=== PATIENT | female | born 1955 | race Caucasian/White ===

== ENCOUNTER → 2017-05-01 10:08 | Outpatient (CLI) | payer OTHER ==
[2015-10-08 11:32] VITALS: BMI 32.7
[~2017-05-01 10:08] MED LIST: ELAVIL75 MG PO; KLONOPIN1 MG PO; PRINIVIL20 MG PO; PROZAC20 MG PO; SYNTHROID100 MCG PO; ZOMIG5 MG PO
[2017-05-01 11:22] LABS: T4 THYROXIN - FREE 1.35 ng/dL (0.76-1.46); THYROID STIMULATING HORMONE 2.03 uIU/mL (0.36-3.74)
== END | disposition home or self-care (01) ==
LOC: D.RAD 10:08
PROVIDERS: Internal Medicine Gastroenterology
DX: K59.00 Constipation, unspecified (principal); R10.9 Unspecified abdominal pain

== ENCOUNTER 2019-07-19 12:51 | Day surgery (SDC) | payer MEDICAID ==
[~2019-07-19] VITALS: Ht 182.9 cm; Wt 99.8 kg
[~2019-07-19 12:51] MED LIST changes: +ALLOPURINOL TAB 300 PO; +BACLOFEN10 MG PO; +LIPITOR20 MG PO; +PROTONIX40 MG PO; +TOPROL XL50 MG PO
[2019-07-19 13:27] LABS: HEMATOCRIT 39.6 % (36.0-48.0); HEMOGLOBIN 13.2 g/dL (12-16); MCH 29.4 pg (26.0-34.0); MCHC 33.3 g/dL (31.0-37.0); MCV 88.2 fL (80.0-100.0); MEAN PLATELET VOLUME 9.6 fL (7.4-10.4); RBC 4.49 10x6/uL (4.00-5.40); RDW 13.6 % (11.5-14.5); WBC 5.9 10x3/uL (4.8-10.8)
[2019-07-19 14:37] VITALS: BP 137/59; Ht 182.9 cm; Wt 99.8 kg
[2019-07-19] MEDS ORDERED: KEFLEX500 MG PO (18:05)
[2019-07-19] MEDS ORDERED: PERCOCET 5-3251 TAB PO (18:05)
--- NOTE | 2019-07-20 08:51 | OP ---
PATIENT NAME: AURY ESTEVES MEDICAL RECORD: [id number] :57 LOCATION:[facility] ADMISSION DATE: SURGEON: LUKE GARZA DO DATE OF OPERATION: 07/19/2019 PROCEDURE PERFORMED: Left elbow olecranon bursectomy. PREOPERATIVE DIAGNOSIS: Left elbow olecranon bursitis. POSTOPERATIVE DIAGNOSIS: Left elbow olecranon bursitis. INDICATIONS: Ms. Winslow is a 64-year-old female who has had a left elbow olecranon bursa for quite some time. She said it has not gone away. It is very bothersome to her, bumps on everything and wanted it removed. I informed her of the risks including damage to nerves in the area as well as the high risk of recurrence with this. She was okay with that and wanted it removed. She was then also informed of the risks of infection, bleeding, and she signed the consent. SURGEON: Luke Garza DO DESCRIPTION OF PROCEDURE: The patient was taken to the operative suite, laid on the right lateral decubitus position with the left elbow up. Axillary roll was placed underneath her axilla. She was then wrapped with a pacheco bag and was inflated. The air was sucked out of it. She was in comfortable position. She was then sedated and LMA was placed. She was given 2 grams of Ancef preoperatively. The left upper extremity was then prepped and draped in sterile fashion. A timeout was performed and everyone was in agreeance of the correct side, site, patient and procedure. I was assisted by Milton Reyes, certified surgical investigative assistant. He assisted with closing and retraction. Incision was made over the olecranon bursa and careful dissection was made down to it. The bursa had ruptured on dissection down to it. The sac was then grabbed with a pickup and Allis and dissected off the olecranon. Once the sac had been removed, there was a cluster of what appeared to be granulating tissue on the olecranon. This was debrided down the triceps tendon. The tourniquet was then let down. Any bleeding was coagulated with Bovie and the site was injected with 0.25% Marcaine with epinephrine, 10 mL. Skin closed with 2-0 Vicryl in inverted interrupted fashion, 4-0 Monocryl ran on the skin and wrapped with Adaptic, 4 x 4s, ABD, Webril and then an Jose wrap from the hand all the way up to the elbow. Tourniquet was inflated after the left upper extremity was exsanguinated with an Esmarch and was up for 11 minutes to 250 mmHg. She was awakened and taken to recovery in stable condition. BLOOD LOSS: Minimal. COMPLICATIONS: None. TRANSINT:[id number] Voice Confirmation ID: [id number] DOCUMENT ID: [id number] OPERATIVE REPORT [id number] AURY ESTEVES MICHAEL D, DO at 0851 CC: [id number] DICTATION DATE: 07/19/191811 P[facility]TER: 07/20/19 0419 [facility] 07/19/19 [id number] [place] [address]
== END 2019-07-19 19:45 | disposition home or self-care (01) ==
LOC: D.OPS 12:51 → D.PAN 15:15 → D.OPS 19:45
PROVIDERS: Anesthesiology; ATTEND Orthopaedic Surgery
DX: M70.22 Olecranon bursitis, left elbow (principal); I10 Essential (primary) hypertension; K21.9 Gastro-esophageal reflux disease without esophagitis

== ENCOUNTER → 2019-08-01 10:30 | Outpatient (CLI) | payer MEDICAID ==
[2019-07-19 14:37] VITALS: BMI 29.9
[~2019-08-01 10:30] MED LIST changes: +KEFLEX500 MG PO; +PERCOCET 5-3251 TAB PO
== END | disposition home or self-care (01) ==
LOC: D.MAMMO 10:30
PROVIDERS: ATTEND Family Medicine
DX: Z12.31 Encounter for screening mammogram for malignant neoplasm of breast (principal)